=== PATIENT | female | born 1995 | race Caucasian/White ===

== ENCOUNTER 2017-01-13 14:23 | Emergency (ER) | payer OTHER ==
[2017-01-13] MEDS ORDERED: SODIUM CHLORIDE 0.9% 1,000 ML IV STA (14:45)
[2017-01-13] MEDS ORDERED: ONDANSETRON 4 MG/2 ML VIAL IVP STA (14:45)
[2017-01-13] MEDS ORDERED: LORazepam 2 MG/ML SYRINGE IV STA (14:45)
--- NOTE | 2017-01-13 14:48 | ED ---
General Adult HPI - General Chief complaint: Seizure Stated complaint: seizure Time Seen by Provider: 01/13/17 14:40 Source: patient, family, RN notes reviewed Mode of arrival: wheelchair Limitations: no limitations - History of Present Illness Initial comments: Patient 21-year-old female is significant past medical history for epilepsy, who presents emergency room today with a chief complaint of a seizure that occurred approximately 2 hours ago. Patient admits that she was in the closet looking for something when he had a seizure. He was witnessed by her mother who is at bedside. Patient denies any injuries from seizure. Does admit that she feels tired has a headache states consistent with seizures that she's had in the past. Patient admits that it's been approximately 8 years since previous seizure. Does admit that she's Lamictal and Keppra. States she has not taking Her over the last 3 or 4 days because she ran out. Patient admits to feeling nauseated has had an episode of vomiting here in the emergency room. She states she got to pick it up from pharmacy. Patient denies any other complaints or symptoms at this time. Patient denies any recent fever, chills, shortness of breath, chest pain, back pain, numbness or tingling, dysuria or hematuria, constipation or diarrhea, headaches or visual changes, or any other complaints. - Related Data Previous Rx's Medication Instructions Recorded Zonisamide [Zonegran] 50 mg PO HS #5 capsule 01/13/17 Allergies Allergy/AdvReac Type Severity Reaction Status Date / Time Penicillins Allergy Rash/Hives Verified 01/13/17 14:31 Review of Systems ROS Statement: Those systems with pertinent positive or pertinent negative responses have been documented in the HPI. ROS Other: All systems not noted in ROS Statement are negative. Past Medical History Past Medical History: Seizure Disorder History of Any Multi-Drug Resistant Organisms: None Reported Past Surgical History: No Surgical Hx Reported Past Psychological History: No Psychological Hx Reported Smoking Status: Never smoker Past Alcohol Use History: None Reported Past Drug Use History: None Reported General Exam - General Exam Comments Initial Comments: General: The patient is awake and alert, in no distress, and does not appear acutely ill. Eye: Pupils are equal, round and reactive to light, extra-ocular movements are intact. No nystagmus. There is normal conjunctiva bilaterally. No signs of icterus. Ears, nose, mouth and throat: There are moist mucous membranes and no oral lesions. Neck: The neck is supple, there is no tenderness or JVD. Cardiovascular: There is a regular rate and rhythm. No murmur, rub or gallop is appreciated. Respiratory: Lungs are clear to auscultation, respirations are non-labored, breath sounds are equal. No wheezes, stridor, rales, or rhonchi. Gastrointestinal: Soft, non-distended, non-tender abdomen without masses or organomegaly noted. There is no rebound or guarding present. No CVA tenderness. Bowel sounds are unremarkable. Musculoskeletal: Normal ROM, no tenderness. Strength 5/5. Sensation intact. Pulses equal bilaterally 2+. Neurological: A&O x 3. CN II-XII intact, There are no obvious motor or sensory deficits. Coordination appears grossly intact. Speech is normal. Skin: Skin is warm and dry and no rashes or lesions are noted. Psychiatric: Cooperative, appropriate mood & affect, normal judgment. Limitations: no limitations Course Vital Signs 01/13/17 14:28 Temperature 96.8 F L Pulse Rate 97 Respiratory 16 Rate Blood Pressure 127/70 O2 Sat by Pulse 98 Oximetry Medical Decision Making - Medical Decision Making Patient reexamined at this time shows no signs of distress. Patient states feeling better here in the emergency room. His had no more episodes of nausea vomiting. Patient no more seizures. Has been observed and is doing well. Patient doing well at this time. She is feeling comfortable. Labs been reviewed shows a 13,000 white count. Remaining labs are unremarkable. Patient states she does have her Keppra and Lamictal she has been taking this she is currently out of her Zonegran. He states he takes 50 mg at bedtime. Patient will be discharged home given a prescription for her anticonvulsant Zonegran. She denies follow-up family doctor or return to emergency room if any symptoms increase worsen or for any other concerns. - Lab Data Result diagrams: 01/13/17 15:00 01/13/17 15:00 Lab Results 01/13/17 01/13/17 01/13/17 Range/Units 15:00 15:00 15:50 WBC 13.7 H (4.0-11.0) k/uL RBC 4.56 (3.80-5.40) m/uL Hgb 13.6 (11.4-16.0) gm/dL Hct 41.1 (34.0-46.0) % MCV 90.2 (80.0-100.0) fL MCH 29.9 (25.0-35.0) pg MCHC 33.2 (31.0-37.0) g/dL RDW 12.4 (11.5-15.5) % Plt Count 313 (150-450) k/uL Neutrophils % 77 % Lymphocytes % 18 % Monocytes % 3 % Eosinophils % 1 % Basophils % 1 % Neutrophils # 10.5 H (1.3-7.7) k/uL Lymphocytes # 2.4 (1.0-4.8) k/uL Monocytes # 0.5 (0-1.0) k/uL Eosinophils # 0.1 (0-0.7) k/uL Basophils # 0.1 (0-0.2) k/uL Sodium 139 (137-145) mmol/L Potassium 4.5 (3.5-5.1) mmol/L Chloride 103 (98-107) mmol/L Carbon Dioxide 21 L (22-30) mmol/L Anion Gap 15 mmol/L BUN 8 (7-17) mg/dL Creatinine 0.70 (0.52-1.04) mg/dL Est GFR (MDRD) Af Amer >60 (>60 ml/min/1.73 sqM) Est GFR (MDRD) Non-Af >60 (>60 ml/min/1.73 sqM) Glucose 109 H (74-99) mg/dL Calcium 9.0 (8.4-10.2) mg/dL Total Bilirubin 0.6 (0.2-1.3) mg/dL AST 24 (14-36) U/L ALT 30 (9-52) U/L Alkaline Phosphatase 96 (38-126) U/L Total Protein 7.8 (6.3-8.2) g/dL Albumin 4.5 (3.5-5.0) g/dL Urine Color Urine Appearance (Clear) Urine pH (5.0-8.0) Ur Specific [place] (1.001-1.035) Urine Protein (Negative) Urine Glucose (UA) (Negative) Urine Ketones (Negative) Urine Blood (Negative) Urine Nitrate (Negative) Urine Bilirubin (Negative) Urine Urobilinogen (<2.0) mg/dL Ur Leukocyte Esterase (Negative) Urine HCG, Qual Not Detected (Not Detectd) 01/13/17 Range/Units 15:50 WBC (4.0-11.0) k/uL RBC (3.80-5.40) m/uL Hgb (11.4-16.0) gm/dL Hct (34.0-46.0) % MCV (80.0-100.0) fL MCH (25.0-35.0) pg MCHC (31.0-37.0) g/dL RDW (11.5-15.5) % Plt Count (150-450) k/uL Neutrophils % % Lymphocytes % % Monocytes % % Eosinophils % % Basophils % % Neutrophils # (1.3-7.7) k/uL Lymphocytes # (1.0-4.8) k/uL Monocytes # (0-1.0) k/uL Eosinophils # (0-0.7) k/uL Basophils # (0-0.2) k/uL Sodium (137-145) mmol/L Potassium (3.5-5.1) mmol/L Chloride (98-107) mmol/L Carbon Dioxide (22-30) mmol/L Anion Gap mmol/L BUN (7-17) mg/dL Creatinine (0.52-1.04) mg/dL Est GFR (MDRD) Af Amer (>60 ml/min/1.73 sqM) Est GFR (MDRD) Non-Af (>60 ml/min/1.73 sqM) Glucose (74-99) mg/dL Calcium (8.4-10.2) mg/dL Total Bilirubin (0.2-1.3) mg/dL AST (14-36) U/L ALT (9-52) U/L Alkaline Phosphatase (38-126) U/L Total Protein (6.3-8.2) g/dL Albumin (3.5-5.0) g/dL Urine Color Light Yellow Urine Appearance Clear (Clear) Urine pH 6.0 (5.0-8.0) Ur Specific [place] 1.011 (1.001-1.035) Urine Protein Trace H (Negative) Urine Glucose (UA) Negative (Negative) Urine Ketones Trace H (Negative) Urine Blood Negative (Negative) Urine Nitrate Negative (Negative) Urine Bilirubin Negative (Negative) Urine Urobilinogen <2.0 (<2.0) mg/dL Ur Leukocyte Esterase Negative (Negative) Urine HCG, Qual (Not Detectd) Disposition Clinical Impression: Generalized seizure Disposition: HOME SELF-CARE Condition: Good Instructions: Recurrent Seizures in Adults (ED) Additional Instructions: Please use medication as prescribed. Please follow-up with family doctor in the next 2 days. Please return to emergency room if the symptoms increase or worsen or for any other concerns. Prescriptions: Zonisamide [Zonegran] 50 mg PO HS #5 capsule Time of Disposition: 16:20
[2017-01-13 15:10] LABS: Basophils # (A) 0.1 k/uL (0-0.2); Basophils % (A) 1 %; CHCM 34.5; Eosinophils # (A) 0.1 k/uL (0-0.7); Eosinophils % (A) 1 %; HCT 41.1 % (34.0-46.0); HDW 2.58; HGB 13.6 gm/dL (11.4-16.0); Luc # (Auto) 0.15; Luc % (Auto) 1; Lymphocytes # (A) 2.4 k/uL (1.0-4.8); Lymphocytes % (A) 18 %; MCH 29.9 pg (25.0-35.0); MCHC 33.2 g/dL (31.0-37.0); MCV 90.2 fL (80.0-100.0); Mean Platelet Volume 7.8; Monocytes # (A) 0.5 k/uL (0-1.0); Monocytes % (A) 3 %; Neutrophils # (A) 10.5 k/uL (1.3-7.7); Neutrophils % (A) 77 %; RBC 4.56 m/uL (3.80-5.40); RDW 12.4 % (11.5-15.5); WBC 13.7 k/uL (4.0-11.0); WBC (Perox) 14.27
[2017-01-13 15:19] LABS: ALT 30 U/L (9-52); AST 24 U/L (14-36); Alkaline Phosphatase 96 U/L (38-126); Anion Gap 15 mmol/L; Blood Urea Nitrogen 8 mg/dL (7-17); Carbon Dioxide 21 mmol/L (22-30); Chloride 103 mmol/L (98-107); Glucose 109 mg/dL (74-99); Non-African American GFR(MDRD) >60 (>60 ml/min/1.73 sqM); Potassium 4.5 mmol/L (3.5-5.1); Sodium 139 mmol/L (137-145); Total Bilirubin 0.6 mg/dL (0.2-1.3); Total Protein 7.8 g/dL (6.3-8.2)
[2017-01-13] MEDS ORDERED: levETIRAcetam IV 1,000 MG in SALINE 1 100ML.BAG IVPB STA (15:58)
[2017-01-13 16:09] LABS: Appearance,Urine Clear (Clear); Bilirubin,Urine Negative (Negative); Glucose,Urine (UA) Negative (Negative); Ketones,Urine Trace (Negative); Leukocyte Esterase,Urine Negative (Negative); Nitrite,Urine Negative (Negative); Protein,Urine Trace (Negative); Specific Gravity,Urine 1.011 (1.001-1.035); UA Billing (MACRO vs. MICRO) CHEM; Urobilinogen,Urine <2.0 mg/dL (<2.0)
[2017-01-13 16:52] VITALS: BP 116/58; PULSE 92; RESP 18; TEMP 97.6
[2017-01-15 09:05] LABS: Levetiracetam (Keppra) 1.9 ug/mL (3.0-60.0)
== END 2017-01-13 16:51 | disposition home or self-care (01) ==
LOC: EC 14:23
DX: G40.409 Other generalized epilepsy and epileptic syndromes, not intractable, without status epilepticus (principal); R11.2 Nausea with vomiting, unspecified; Z88.0 Allergy status to penicillin
CPT/HCPCS: 36415; 80053; 80175; 80177; 85025; 81003; 81025; 99284; 96374; 96375; 96361; J2060; J2405

== ENCOUNTER → 2020-08-31 | Outpatient (CLI) | payer OTHER ==
[2020-08-31 21:56] LABS: Hemoglobin A1C 5.2 % (4.0-6.0)
== END | disposition home or self-care (01) ==
LOC: LABWHC1 09:34
PROVIDERS: ATTEND Psychiatry & Neurology Pain Medicine
DX: G40.909 Epilepsy, unspecified, not intractable, without status epilepticus (principal); Z51.81 Encounter for therapeutic drug level monitoring
CPT/HCPCS: 36415; 80175; 83036